=== PATIENT | female | born 1945 | race Two or more races ===

== ENCOUNTER 2019-02-28 17:01 | Inpatient (IN) | payer SELFPAY ==
[~2019-02-28] VITALS: Ht 162.6 cm; Wt 59.0 kg
[2019-02-28] MEDS ORDERED: IV NORMAL SALINE 1,000ML 1,000 ML IV ONE (17:15)
[2019-02-28 17:40] LABS: BASO % 1 % (0-3); EOS # 0.2 x10^3/uL (0.0-0.7); EOS % 3 % (0-3); HEMATOCRIT 40.7 % (36.0-47.0); HEMOGLOBIN 13.4 g/dL (12.0-15.5); LYMPH # 2.4 x10^3/uL (1.0-4.8); LYMPH % 38 % (24-48); MEAN CORPUSCULAR HEMOGLOBIN 33 pg (25-35); MEAN CORPUSCULAR HGB CONC 33 g/dL (31-37); MEAN CORPUSCULAR VOLUME 100 fL (79-100); MONO # 0.6 x10^3/uL (0.0-1.1); MONO % 10 % (0-9); NEUT # 3.1 x10^3uL (1.8-7.7); NEUT % 49 % (31-73); PLATELET COUNT 289 x10^3/uL (140-400); RED BLOOD COUNT 4.06 x10^6/uL (3.50-5.40); RED CELL DISTRIBUTION WIDTH 14.8 % (11.5-14.5); WHITE BLOOD COUNT 6.3 x10^3/uL (4.0-11.0)
[2019-02-28 17:53] LABS: ALBUMIN 3.8 g/dL (3.4-5.0); CREATININE 0.8 mg/dL (0.6-1.0); GFR 70.1; POTASSIUM 4.6 mmol/L (3.5-5.1); TOTAL BILIRUBIN 0.8 mg/dL (0.2-1.0); TOTAL PROTEIN 7.7 g/dL (6.4-8.2)
--- NOTE | 2019-02-28 17:54 | ED.ADGEN ---
Past History Past Medical History: Asthma Past Surgical History: No Surgical History Alcohol Use: Occasionally Drug Use: None Adult General Chief Complaint Chief Complaint Syncope HPI HPI Patient is a [73-year-old -[place] kvi-Kstruar-ttdxfwik female who presents with witnessed syncopal episode. Simple episode was witnessed by the patient's daughter. Patient was standing and felt weak and lightheaded. She caught while collapsing and was lowered to the ground. Patient had a brief loss of consciousness less than 2 seconds without witnessed seizure activity. Symptoms have since resolved. No report of headache, focal extremity weakness or loss of sensation. Chest pain palpitations, shortness of breath, nausea vomiting abdominal pain or diarrhea. Patient uses albuterol inhaler but is not on any other medications. No history of stroke, nose, kidney, liver disease or cancer. Pain from the patient's families who assisted with translation.[] Review of Systems Review of Systems Review symptoms as per history of present illness. All other review symptoms are negative. All other systems were reviewed and found to be within normal limits, except as documented in this note. Current Medications Current Medications Current Medications Medications (Trade) Dose Ordered Sig/Roque Start Time Stop Time Status Last Admin Dose Admin Sodium Chloride 1,000 ml @ 1,000 mls/hr 1X ONCE 02/28/19 17:15 02/28/19 18:14 UNV 02/28/19 17:35 1,000 MLS/HR Physical Exam Physical Exam Constitutional: Well developed, well nourished, no acute distress, non-toxic appearance. [] HENT: Normocephalic, atraumatic, bilateral external ears normal, oropharynx moist, no oral exudates, nose normal. [] Eyes: PERRLA, EOMI, conjunctiva normal, no discharge. [] Neck: Normal range of motion, no tenderness, supple, no stridor. [] Cardiovascular:Heart rate regular rhythm, no murmur [] Lungs & Thorax: Bilateral breath sounds clear to auscultation [] Abdomen: Bowel sounds normal, soft, no tenderness, no masses, no pulsatile masses. [] Skin: Warm, dry, no erythema, no rash. [] Back: No tenderness, no CVA tenderness. [] Extremities: No tenderness, no cyanosis, no clubbing, ROM intact, no edema. [] Neurologic: Alert and oriented, normal motor function, normal sensory function, no focal deficits noted. [] Psychologic: Affect normal, judgement normal, mood normal. [] Current Patient Data Vital Signs Vital Signs Date Time Temp Pulse Resp B/P (MAP) Pulse Ox O2 Delivery O2 Flow Rate FiO2 02/28/19 17:07 98.3 75 18 99 Room Air Lab Results Laboratory Tests Test 02/28/19 17:25 White Blood Count 6.3 x10^3/uL (4.0-11.0) Red Blood Count 4.06 x10^6/uL (3.50-5.40) Hemoglobin 13.4 g/dL (12.0-15.5) Hematocrit 40.7 % (36.0-47.0) Mean Corpuscular Volume 100 fL (79-100) Mean Corpuscular Hemoglobin 33 pg (25-35) Mean Corpuscular Hemoglobin Concent 33 g/dL (31-37) Red Cell Distribution Width 14.8 % (11.5-14.5) H Platelet Count 289 x10^3/uL (140-400) Neutrophils (%) (Auto) 49 % (31-73) Lymphocytes (%) (Auto) 38 % (24-48) Monocytes (%) (Auto) 10 % (0-9) H Eosinophils (%) (Auto) 3 % (0-3) Basophils (%) (Auto) 1 % (0-3) Neutrophils # (Auto) 3.1 x10^3uL (1.8-7.7) Lymphocytes # (Auto) 2.4 x10^3/uL (1.0-4.8) Monocytes # (Auto) 0.6 x10^3/uL (0.0-1.1) Eosinophils # (Auto) 0.2 x10^3/uL (0.0-0.7) Basophils # (Auto) 0.0 x10^3/uL (0.0-0.2) EKG EKG [EKG: Sinus rhythm, no acute ST-T wave changes, rate 76.] Radiology/Procedures Radiology/Procedures [CT head: Pending Chest x-ray: Pending] Course & Med Decision Making Course & Med Decision Making Pertinent Labs and Imaging studies reviewed. (See chart for details) [Work up in progress. Anticipate hospital admission for syncope evaluation] Final Impression Final Impression [1. Syncope] Dragon Disclaimer Dragon Disclaimer This electronic medical record was generated, in whole or in part, using a voice recognition dictation system. ZAIRA GALLARDO DO Feb 28, 2019 17:54
[2019-02-28 17:56] LABS: BACTERIA,URINE MANY /HPF (0-FEW); BILIRUBIN,URINE NEG (NEG); CLARITY,URINE CLOUDY; COLOR,URINE YELLOW; GLUCOSE,URINE NEG (NEG); NITRITE,URINE POS (NEG); SQUAMOUS EPITHELIAL CELL,UR FEW /LPF; UROBILINOGEN,URINE 1 mg/dL (0.2 mg/dL)
[2019-02-28] MEDS ORDERED: cloNIDine HCL 0.1 MG TABLET PO PRN (18:15)
--- NOTE | 2019-02-28 18:15 | RAD ---
Exam: CT head INDICATION: Syncope TECHNIQUE: Sequential axial images through the head were obtained without the administration of IV contrast. Comparisons: None FINDINGS: No focal parenchymal lesion or hemorrhage is identified. There is no midline shift or sulcal effacement. No acute vascular territory infarction is identified. Frazier-white distinction is preserved. The ventricular system is within normal limits without compression hydrocephalus. The basal cisterns are well maintained. The visualized portions of the paranasal sinuses and mastoid air cells are well-pneumatized. No acute fractures. IMPRESSION: No acute intracranial abnormality. Exposure: One or more of the following in the visualized dose reduction techniques were utilized for this examination: 1. Automated exposure control 2. Adjustment of the MA and/or KV according to patient size Use of iterative of reconstructive technique Electronically signed by: Noman Francisco MD (02/28/2019 6:12 PM) [facility]
[2019-02-28] MEDS ORDERED: cloNIDine HCL 0.1 MG TABLET PO ONE (18:45)
[2019-02-28] MEDS ORDERED: ASPIRIN 81 MG TAB.CHEW PO ONE (18:45)
[2019-02-28 19:30] VITALS: BP 201/103
--- NOTE | 2019-02-28 19:56 | RAD ---
Exam: Chest one view INDICATION: Shortness of breath TECHNIQUE: Frontal view of the chest Comparisons: None FINDINGS: The cardiomediastinal silhouette and pulmonary vessels are within normal limits. The lung and pleural spaces are clear. IMPRESSION: No acute cardiopulmonary process. Electronically signed by: Noman Francisco MD (02/28/2019 7:53 PM) [facility]
--- NOTE | 2019-02-28 20:14 | NUR ---
Patient admitted to room 5 from the ER. Patient arrived with family. Patient denies pain at this time. Patient does not speak ukrainian only tamazight. Family translates for patient. Will continue to monitor.
[2019-02-28 21:00] VITALS: BP 158/90
[2019-02-28 22:09] VITALS: BP 138/81
[2019-02-28] MEDS ORDERED: ALBU2.5V8 INH (23:02)
[2019-03-01 05:54] VITALS: BP 158/82
--- NOTE | 2019-03-01 06:02 | NUR ---
Consult called to 's office. Spoke with answering service.
--- NOTE | 2019-03-01 07:59 | EKG ---
[address] [address] Test Date: 2019-02-28 Test Time: 17:12:02 Pat Name: JUAN J KAY Department: Room: [place] [address] Gender: F Graphics Editor: LIZY : 1945 Requested By: ZAIRA GALLARDO Order Number: [id number] Reading MD: Diomedes Tarango MD Measurements Intervals [place] Rate: 76 P: 67 AK: 178 QRS: -5 QRSD: 80 T: 22 QT: 392 QTc: 445 Interpretive Statements SINUS RHYTHM Electronically Signed On 03-01-2019 16:27:25 CDT by Diomedes Tarango MD
[2019-03-01 11:20] VITALS: BP 161/89
[2019-03-01] MEDS ORDERED: amLODIPine BESYLATE 10 MG TABLET PO SCH (11:45)
[2019-03-01 15:00] VITALS: BP 145/74
[2019-03-01] MEDS ORDERED: AMLO10TA4 PO (16:39)
[2019-03-01] MEDS ORDERED: HYDR-2868 PO (16:39)
--- NOTE | 2019-03-01 16:59 | NUR ---
pt dc to home. Pt is partially able to verbalize understanding of discharge instructions. PT given norvasc and to start hydralazine in 3 days if Bp not below 140/[address] Sims. PT given information in romansh to patient.PT left amb with daughter and son in law. Marimar Bauman
--- NOTE | 2019-03-01 18:34 | HP ---
ADMIT DATE: 02/28/2019 HISTORY OF PRESENT ILLNESS: The patient is a 73-year-old -[place]ian non-Thai female who presented with a syncopal episode. She was standing and felt weak and lightheaded. She "while collapsing and was lowered down to the ground." The patient apparently had brief loss of consciousness less than 2 seconds without witnessed seizure activity. Symptoms have since resolved. She denied any headache, focal extremity weakness or loss of sensation. She denied any chest pain, palpitation, shortness of breath, nausea, vomiting, abdominal pain, no diarrhea, and she was extensively evaluated in the Emergency Room. She has had lab work, which was unremarkable, and her first set of cardiac enzymes showed that her troponin was less than 0.107. Her urinalysis was unremarkable. Chest x-ray showed that the cardiomediastinal silhouette and pulmonary vessels are within normal limits. The lungs and pleural spaces are clear. CT scan of the head showed no focal parenchymal lesion or hemorrhage identified. There is no midline shift or focal effacement, no acute vascular territory infarction identified, gorman-white distinction is preserved. The patient was admitted as her blood pressure was extremely high on arrival, and in fact, her blood pressure on arrival was 221/109, for which she was treated with clonidine. She was also given a liter of normal saline and was admitted to do two more sets of cardiac enzyme and to consult the cardiology team. PAST MEDICAL HISTORY: Significant for bronchial asthma for which she is on albuterol inhaler. PAST SURGICAL HISTORY: Significant for . FAMILY HISTORY: Unremarkable. SOCIAL HISTORY: She lives with her daughter. She apparently does not smoke, drink alcohol or use any recreational drugs. PHYSICAL EXAMINATION: GENERAL: On arrival to the Emergency Room, she looked well and was clearly in no apparent respiratory distress. No pallor, jaundice, cyanosis or thyromegaly. No jugular venous distension. No lower limb edema. VITAL SIGNS: Her heart rate was 75, blood pressure was 121/109, temperature was 98.3, respiratory rate was 18 and oxygen saturation was 99% on room air. HEAD, EYES, EARS, NOSE AND THROAT: Showed normocephalic, atraumatic. NECK: Supple. HEART: Showed normal first and second heart sounds. No gallop or murmur. CHEST: Clear to auscultation. No crepitation or rhonchi. ABDOMEN: Slightly distended, soft, nontender. NEUROLOGIC: She is awake, alert, responding appropriately. All cranial nerves intact. EXTREMITIES: She moves extremities without difficulty. LABORATORY DATA: On admission showed a white cell count 6300, hemoglobin 13.4, hematocrit 41, MCV 100, and platelet count of 289,000. Her chemistry showed a serum sodium 140, potassium 3.6, chloride 105, bicarbonate 30, anion gap of 5, BUN 14, creatinine 0.8, estimated GFR was 70 mL per minute. Her glucose was 100, calcium was 9. Total bilirubin 0.8. AST, ALT, alkaline phosphatase were normal. Total protein was 7.7, albumin 3.8. Her first troponin was less than 0.017. Urinalysis showed the urine was yellow, cloudy with a pH of 8.5, specific gravity 20. Her urine was positive for nitrite and many bacteria, moderate leukocyte esterase ____. There is only1-2 rbc's and 1-4 wbc's. Her nasal screen for MRSA by PCR was negative. Chest x-ray showed cardiomediastinal silhouette and pulmonary vasculature are within normal limits. The lungs and pleural spaces are clear and CT scan of the head showed there is no focal parenchymal lesion or hemorrhage is identified. There is no midline shift or sulcal effacement, no acute vascular territory infarction is identified. Gorman-white distinction is preserved. The ventricular system is within normal limits without compression hydrocephalus. Basal cisterns are well maintained. The visualized portion of the paranasal sinuses and mastoid air cells are within normal size and no acute fractures. Plan is to do two more sets of cardiac enzymes and she was continued on clonidine 0.4 mg every 4 hours. She was started also on IV ceftriaxone for possible urinary tract infection and amlodipine 10 mg once a day. BETHEL PEARL MD DR: MOISE/walter JOB#: [id number] / [id number]
--- NOTE | 2019-03-01 18:43 | PDOC ---
PROVIDER NOTE PROVIDER NOTE PROVIDER NOTE Cardiology consultation note Reason for consultation near-syncope Consulting physician: Dr. Quinones History of present illness 73-year-old Samoan-speaking woman from [facility] in [place] who is visiting her family here presented due to a near syncopal event. Most of the history is obtained from the patient's son-in-law and daughter who speaking mission who were able to help to translate with the patient. The patient apparently at baseline does not have any significant medical problems except for asthma for which she was given a albuterol inhaler. She's been taking this for a long time. Recently while she's been here she has not had any specific cardiac limitation such as chest pain, dyspnea, orthopnea, PND, palpitations. Prior to presentation the hospital she felt little lightheaded and nearly syncopized and was caught by her daughter. She did not have any prodromal symptoms. Upon arrival to the ER she had a systolic blood pressure greater than 220. The patient's family believes that she may have been nervous from a recent trip to [place] where she wrote a roller coaster and had some difficulty after this with anxiety. Past medical history as noted above but otherwise unremarkable for any other cardiac issues Social history patient denies any alcohol, tobacco or illicit drug use. Family history is noncontributory Allergies no known drug allergies Current cardiac medications amlodipine 10 mg daily which has been started on the hospital Review systems is negative unless otherwise mentioned above in history of present illness. Physical examination The patient appeared well nourished and normally developed. Head exam is unremarkable. No scleral icterus or corneal arcus noted. Neck is without jugular venous distension, thyromegaly, or carotid bruits. Carotid upstrokes are brisk bilaterally. Lungs are clear to auscultation and percussion. Cardiac exam reveals the PMI to be normally sized and situated. Rhythm is regular. First and second heart sounds normal. No murmurs, rubs or gallops. Abdominal exam reveals normal bowel sounds, no masses, no organomegaly and no aortic enlargement. Extremities are nonedematous and both femoral and pedal pulses are normal. Msk: No traumua Neuro: No focal deficits Diagnostic studies: Her EKG, cardiac enzymes are within normal limits. Impression: 1. Near syncope in the setting of malignant hypertension Recommendations: 1. Agree with initiation of amlodipine. She also given a prescription for hydralazine 25 g by mouth twice a day in the event her blood pressure is not controlled over the next 4-5 days on amlodipine alone. We discussed with the patient's family their goal blood pressure 140/80 would be appropriate over the next 2-3 months. The patient is planning on visiting another relative in [place] and she will also have follow-up there along with back: [place] for further treatment of hypertension. Thank you for this consultation. Please call with any further questions. The patient's family was provided with our office information should they need any further assistance in the near future. NELIA PRINCE MD Mar 01, 2019 18:43
[2019-03-01] MEDS ORDERED: LACTOBACILLUS RHAMNOSUS GG 1 CAPSULE. PO SCH (21:00)
--- NOTE | 2019-03-02 01:30 | DS ---
DATE OF DISCHARGE: 03/01/2019 HOSPITAL COURSE: The patient is a 73-year-old female patient who came with syncopal episode. She was extensively evaluated. She has 3 sets of cardiac enzymes, which were negative. We did start her on amlodipine and her blood pressure has improved. She has no evidence of postural hypertension and she remained hemodynamically stable. She was evaluated by the television production assistant and decision was made to discharge her home to continue on amlodipine. PHYSICAL EXAMINATION: GENERAL: When I examined her this afternoon, she looked well and was clearly in no apparent respiratory distress. No pallor, jaundice, cyanosis, or thyromegaly. No jugular venous distention. No limb edema. VITAL SIGNS: Her heart rate was 68, blood pressure 145/74, temperature was 98, respiratory rate was 18, and oxygen saturation was 98% on room air. HEAD, EYES, EARS, NOSE, AND THROAT: Normocephalic and atraumatic. NECK: Supple. HEART: Showed normal first and second heart sounds with no gallop, rub, or murmur. CHEST: Clear to auscultation. No crepitation or rhonchi. ABDOMEN: Distended, soft, nontender. No guarding or rigidity. No organomegaly. All hernial orifice intact. Bowel sounds normal. NEUROLOGIC: She is awake, alert, responding appropriately. All cranial nerves intact. EXTREMITIES: She moves extremities without difficulty. She ambulates without assistance or assistive devices. LABORATORY DATA: Showed a serum sodium 140, potassium 4.6, chloride 105, bicarbonate 30, anion gap of 5, BUN 14, creatinine 0.8, estimated GFR was 70 mL per minute, her glucose was 100, and calcium was 9. Total bilirubin, AST, ALT, alkaline phosphatase were normal. Three sets of cardiac enzymes were ruled out myocardial infarction. Her total protein was 7.7, albumin 3.8. Her white cell count was 6300, hemoglobin 13.4, hematocrit 40.7, MCV 100, and platelet count 289,000. DISCHARGE MEDICATIONS: She was discharged home to continue on albuterol sulfate 1 puff every 6 hours as needed, amlodipine 10 mg once a day, and hydralazine 25 mg p.o. b.i.d. FINAL DISCHARGE DIAGNOSES: Poorly controlled hypertension, much improved and bronchial asthma. BETHEL PEARL MD DR: Den JOB#: [id number] / [id number]
== END 2019-03-01 17:03 | disposition home or self-care (01) | DRG 312 ==
LOC: ER 17:01 → ICU 18:00 → ER 19:10
PROVIDERS: ADMIT Internal Medicine; ATTEND Internal Medicine
DX: R55 Syncope and collapse (principal); I10 Essential (primary) hypertension; J45.909 Unspecified asthma, uncomplicated; F41.9 Anxiety disorder, unspecified
CPT/HCPCS: 36415; 70450; 71045; 80053; 81001; 84484; 85025; 87086; 87641; 93005; 96360; J0696; 99285-25; J7030